=== PATIENT | female | born 1980 | race Caucasian/White ===

== ENCOUNTER 2018-09-12 14:14 | Emergency (ER) | payer MEDICAID, SELFPAY ==
[2018-09-12 14:20] VITALS: BP 123/82; PULSE 109; RESP 22; TEMP 36.4; O2SAT 100; BMI 20.3
[2018-09-12] MEDS: LORazepam 1 MG Tablet PO (14:35)
--- NOTE | 2018-09-12 15:02 | ED.VISSUMM ---
- ER Visit Summary Date of Service: 09/12/18 Chief Complaint: Anxiety History of Present Illness: The patient is a 37 F with anxiety and depression. She was driving from [place] to [place] for a meeting. She felt anxiety coming on. She has a history of panic and anxiety. She denies any suicidal or homicidal thoughts. This is similar to her prior panic attacks except she has some nausea vomiting. Symptoms are worse because the patient's significant other was diagnosed with brain cancer, and she has been caring for him. Physical Examination: Afebrile and tachycardia. Patient appears anxious and depressed. Denies suicidal or homicidal thoughts. No focal neurologic findings. Heart tachycardic but regular. Lungs clear. Test Results: None indicated Emergency Department Course and Treatment: Patient has panic symptoms. She has a history of anxiety. She is going through a lot of stressors. She was treated with Ativan. There is no indication for hospitalization. There is no indication to suggest a medical cause. Patient has a home prescription for Ativan. She does have a therapist and will follow-up. Treatment Plan: As above Disposition: Discharge Impression: 1. Panic This note was generated with [employer] software. It may contain incorrect words, spelling, and punctuation that were not noted in review of the chart prior to signing ED Disposition - Plan for ED Patient: Referrals: [facility] Doctor,Out of [Primary Care Provider] -
--- NOTE | 2018-09-12 15:11 | ED.DCSUM_ITS ---
- ER Visit Summary Date of Service: 09/12/18 Chief Complaint: Anxiety History of Present Illness: The patient is a 37 F with anxiety and depression. She was driving from [place] to [place] for a meeting. She felt anxiety coming on. She has a history of panic and anxiety. She denies any suicidal or homicidal thoughts. This is similar to her prior panic attacks except she has some nausea vomiting. Symptoms are worse because the patient's significant other was diagnosed with brain cancer, and she has been caring for him. Physical Examination: Afebrile and tachycardia. Patient appears anxious and depressed. Denies suicidal or homicidal thoughts. No focal neurologic f indings. Heart tachycardic but regular. Lungs clear. Test Results: None indicated Emergency Department Course and Treatment: Patient has panic symptoms. She has a history of anxiety. She is going through a lot of stressors. She was treated with Ativan. There is no indication for hospitalization. There is no indication to suggest a medical cause. Patient has a home prescription for Ativan. She does have a therapist and will follow-up. Treatment Plan: As above Disposition: Discharge Impression: 1. Panic This note was generated with [employer] dictation software. It may contain incorrect words, spelling, and punctuation that were not noted in review of the chart prior to signing ED Disposition - Plan for ED Patient: Referrals: [facility] Doctor,Out of [Primary Care Provider] -
--- NOTE | 2018-09-12 15:11 | ED.DEP ---
ED Disposition - Plan for ED Patient: Instructions: ED Panic Attack Referrals: [facility],Out of [Primary Care Provider] -
[2018-09-12 15:39] VITALS: BP 117/74; PULSE 98; RESP 16
== END 2018-09-12 15:39 | disposition home or self-care (01) ==
PROVIDERS: Emergency Provider Emergency Medicine
DX: F41.0 Panic disorder [episodic paroxysmal anxiety] (principal); F43.0 Acute stress reaction; F32.9 Major depressive disorder, single episode, unspecified
CPT/HCPCS: 99284